=== PATIENT | male | born 1945 | race Caucasian/White ===

== ENCOUNTER → 2016-08-13 | Outpatient (CLI) | payer MEDICARE ==
[~2016-08-13] MED LIST: HYDROCODON-ACE1 EAC7 PO; MAG-OXIDE400 MG PO; NIFEREX-150,FE150 MG PO; TAMSULOSIN HCL0.4 MG PO
== END | disposition home or self-care (01) ==
LOC: CDC 11:47
DX: R94.31 Abnormal electrocardiogram [ECG] [EKG] (principal); C67.9 Malignant neoplasm of bladder, unspecified
CPT/HCPCS: 93000